=== PATIENT | male | born 1945 | race Caucasian/White ===

== ENCOUNTER 2018-12-27 05:48 | Observation (INO) | payer MEDICARE, MEDICAID ==
[2018-12-27] VITALS (15 sets, daily range): BP systolic 78–154; BP diastolic 42–83; PULSE 55–99; TEMP 97.6–98.6
[~2018-12-27] VITALS: Ht 175.3 cm; Wt 78.8 kg
[2018-12-27 06:06] LABS: BASO % 0.3 % (0.0-2.0); EOS # 0.2 (0.0-0.7); EOS % 2.9 % (0-4.0); GRAN # 3.5 (1.4-6.5); HEMATOCRIT 42.4 % (42.0-52.0); HEMOGLOBIN 14.4 g/dl (13.5-18.0); LYMPH # 1.6 (1.2-3.4); LYMPH % 27.4 % (20.0-51.0); MEAN CELL VOLUME 97 fl (80.0-100.0); MEAN CORPUSCULAR HEMOGLOBIN 33 pg (27.0-31.0); MEAN CORPUSCULAR HGB CONC 34 g/dl (33.0-37.0); MEAN PLATELET VOLUME 9.1 fl (7.4-10.4); MONO # 0.5 (0.1-0.6); MONO % 9.1 % (1.7-9.3); PLATELET COUNT 205 K/mm3 (130-400); RED BLOOD COUNT 4.37 M/mm3 (4.20-5.60); REDCELL DISTRIBUTION WIDTH-CV 12.7 % (11.5-14.5)
[2018-12-27 06:15] LABS: ALANINE AMINOTRANSFERASE 8 U/L (21-72); ALBUMIN 4.1 gm/dL (3.5-5.0); ALKALINE PHOSPHATASE 62 U/L (50-136); ANION GAP 10 mmol/L (7-16); AST,SGOT 24 U/L (15-37); BILIRUBIN,TOTAL 0.6 mg/dL (0.0-1.0); BLOOD UREA NITROGEN 16 mg/dL (9-20); CALCIUM 9.3 mg/dL (8.4-10.2); CARBON DIOXIDE 31 mmol/L (22-30); CHLORIDE 100 mmol/L (98-107); CREATININE, serum 0.76 (0.66-1.25); GLUCOSE 96 mg/dL (74-106); LIPASE 44 U/L (23-300); POTASSIUM 3.5 mmol/L (3.4-5.0); SODIUM 141 mmol/L (137-145); TOTAL PROTEIN 7.3 gm/dL (6.4-8.2)
[2018-12-27 06:21] LABS: PARTIAL THROMBOPLASTIN TIME 32.9 SECONDS (26.0-37.0)
[2018-12-27 06:22] LABS: D-DIMER < 200.00 ng/mLDDu (200-230)
[2018-12-27 06:26] LABS: TROPONIN-I < 0.012 ng/mL (0.000-0.035)
[2018-12-27] MEDS ORDERED: SINEMET CR 50 M1 TER PO (07:33)
[2018-12-27] MEDS ORDERED: ASPIRIN 81M81 MG/TA2 PO (07:46)
[2018-12-27] MEDS ORDERED: NORVASC 5MG5 MG/TAB PO (07:46)
[2018-12-27] MEDS ORDERED: CENTRUM SILVER1 CTB PO (07:46)
[2018-12-27] MEDS ORDERED: TOPROL XL 25MG25 MG PO (07:47)
[2018-12-27] MEDS ORDERED: ARICEPT10 MG PO (07:47)
[2018-12-27] MEDS ORDERED: HCTZ 25MG TAB25 MG PO (07:47)
[2018-12-27] MEDS ORDERED: IRON 27 MG PO (07:47)
[2018-12-27] MEDS ORDERED: MASON NATURAL2000 IU (07:48)
[2018-12-27] MEDS ORDERED: NATURAL BALANCE15 M1 OP (07:49)
[2018-12-27] MEDS ORDERED: MIRALAX PA17 GM/Dose PO (07:50)
--- NOTE | 2018-12-27 09:00 | NUR ---
arrived on unit per WC and assisted out of WC and into bed
--- NOTE | 2018-12-27 10:00 | NUR ---
resting in bed, Dr Hu and his nurse in to see patient, will plan cardiac cath this afternoon, full assessment completed, see interventions for further info, voided in urinal clear yellow urinal, had been incontinent of small amount urine and care provided
--- NOTE | 2018-12-27 10:52 | NUR ---
vascular lab in to complete echocardiogram
[2018-12-27] MEDS ORDERED: DULCOLAX S10 MG/SUPP RC (11:06)
[2018-12-27] MEDS ORDERED: GOOD NEIGH1200 MG/15 PO (11:09)
[2018-12-27] MEDS ORDERED: IMODIUM 2MG CAPS2 MG PO (11:09)
[2018-12-27] MEDS ORDERED: MYLANTA 150 ML150 M1 PO (11:10)
[2018-12-27] MEDS ORDERED: TYLENOL 325MG325 MG PO (11:11)
--- NOTE | 2018-12-27 11:50 | NUR ---
resting in bed, is very concerned about his parkinson's medication and this was given at this time, denies other needs
--- NOTE | 2018-12-27 12:50 | NUR ---
consent signed for heaert cath, voided using urinal
--- NOTE | 2018-12-27 13:38 | NUR ---
resting in bed and denies needs
--- NOTE | 2018-12-27 14:17 | NUR ---
continues to rest in bed and awaiting cardiac cath
--- NOTE | 2018-12-27 14:45 | NUR ---
to clinical laboratory service teacher per bed
--- NOTE | 2018-12-27 15:18 | NUR ---
SEE MERGE DOCUMENTATION FOR MEDICATION ADMINISTRATION TIMES AND INTRA/POST PROCEDURE SEDATION ASSESSMENTS.
--- NOTE | 2018-12-27 15:51 | NUR ---
remains in nursery laborer, bedside shift report given to FATOU Alamo
--- NOTE | 2018-12-27 16:30 | NUR ---
Patient is back from heart cath. He is drowy but wakes easily and is oriented. He stated he is very hungry. Discussed ordering foods he can eat easily without sitting up because he has to lay flat for 4 hours. Patient verbalized understanding. Vitals stable and documented. Site to right groin is soft, angio-seal dressing is C/D/I. No other changes at this time. Call light within reach. Patient denies pain. Bed alarm set for if patient forgets and tries to get up.
--- NOTE | 2018-12-27 16:32 | NUR ---
PT TRANSFER BACK TO INPATIENT ROOM AT THIS TIME. BEDSIDE REPORT WITH FATOU LOPEZ. MONITORING EQUIPMENT IN PLACE; VS'S STABLE. TELEMETRY CONNECTED. RIGHT FEMORAL SITE OBSERVED WITH INPATIENT RN. SITE SOFT TO PALPATION ; NO BLEEDING, BRUISING, OR SIGN OF HEMATOMA NOTED AT THIS TIME. DISTAL DP PULSE +1; NO CHANGE FROM PRE-PROCEDURE.
--- NOTE | 2018-12-27 18:00 | NUR ---
Patient has been doing well since getting back from his heart cath. Patient denies pain. Needs several reminders that his flat time is up at 2030. Patient ate supper without problems. Denies pain to heart cath site, site remains soft and without drainage. No other changes at this time. Call light within reach.
[2018-12-28 04:41] VITALS: BP 126/61; PULSE 65; TEMP 97.6
[2018-12-28 06:15] LABS: BASO % 0.3 % (0.0-2.0); EOS # 0.1 (0.0-0.7); EOS % 1.8 % (0-4.0); GRAN # 4.7 (1.4-6.5); GRAN % 70.1 % (42.2-75.2); LYMPH # 1.2 (1.2-3.4); LYMPH % 18.3 % (20.0-51.0); MEAN CELL VOLUME 98 fl (80.0-100.0); MEAN CORPUSCULAR HGB CONC 34 g/dl (33.0-37.0); MEAN PLATELET VOLUME 9.2 fl (7.4-10.4); MONO # 0.6 (0.1-0.6); MONO % 9.2 % (1.7-9.3); PLATELET COUNT 181 K/mm3 (130-400); RED BLOOD COUNT 3.73 M/mm3 (4.20-5.60); REDCELL DISTRIBUTION WIDTH-CV 12.7 % (11.5-14.5)
[2018-12-28 06:21] LABS: ANION GAP 8 mmol/L (7-16); BLOOD UREA NITROGEN 14 mg/dL (9-20); CALCIUM 8.5 mg/dL (8.4-10.2); CARBON DIOXIDE 30 mmol/L (22-30); CHLORIDE 100 mmol/L (98-107); CHOLESTEROL 142 mg/dL (120-200); CREATININE, serum 0.77 (0.66-1.25); GLUCOSE 102 mg/dL (74-106); HDL CHOLESTEROL 35 mg/dL; HEMATOCRIT 36.5 % (42.0-52.0); HEMOGLOBIN 12.4 g/dl (13.5-18.0); LDL CHOLESTEROL 94 mg/dL; MEAN CORPUSCULAR HEMOGLOBIN 33 pg (27.0-31.0); POTASSIUM 3.7 mmol/L (3.4-5.0); SODIUM 138 mmol/L (137-145); TRIGLYCERIDE 67 mg/dL
[2018-12-28 06:32] LABS: TROPONIN-I < 0.012 ng/mL (0.000-0.035)
[2018-12-28 07:03] VITALS: BP 114/61; PULSE 66; TEMP 98.2
--- NOTE | 2018-12-28 08:55 | NUR ---
Patient assessment complete. Lung sounds clear, heart RRR, pulses palpable. VSS. Patient on 2 1/2L NC. Titrated to 1L NC to see how patient tolerates. Per patient he is not on O2 at senior care. Patient has noticeable tremors. Rt groin heart cath site is CDI, no swelling, hematoma, bruising, soft to touch. INT RFA IV is patent. Patient states he does get SOB and has some chest tightness. Patient appears to have mild confusion. Could state bday, hard to recall where he currently is or name of senior care. patient needed guidance and also slow to respond. No other needs at this time. Call light within reach.
[2018-12-28] MEDS ORDERED: IMDUR 60MG60 MG/TAB PO (10:30)
[2018-12-28] MEDS ORDERED: LIPITOR 40MG TA40 MG PO (10:30)
[2018-12-28] MEDS ORDERED: NITROSTAT0.4 MG/TAB SL (10:32)
[2018-12-28 10:46] VITALS: BP 132/72; PULSE 78; TEMP 98
--- NOTE | 2018-12-28 13:10 | NUR ---
SEAMUS contacted the patient's daughter, Tierra, to discuss discharge plan. The patient resides at [facility] for long-term care. The patient's daughter reports that the plan is for the patient to return back to [facility] upon discharge. SEAMUS explained the patient choice form to the patient's daughter. The patient's daughter gave SEAMUS her verbal consent. SEAMUS contacted and faxed updates to Mirela at [facility]. The patient is to discharge today, 12/28, back to [facility] for long-term care. Transportation was set for 1400, via [facility]. SEAMUS informed the patient's nurse and the patient's daughter via phone. They were both in agreeance. No additional needs at this time.
[2018-12-28 14:11] VITALS: BP 132/72; PULSE 78; TEMP 98
--- NOTE | 2018-12-28 14:30 | NUR ---
patient discharged back to [facility]. FATOU Schultz here to nut picker patient. this nurse assisted in helping patient to wheelchair. Per FATOU Schultz this patient was more independent than he appears now, she feels he has declined "quite a bit" in the day that he has been here. It is this nurses first shift with patient. FATOU Schultz asked to give her "30 minutes to get back and get settled and call her for report".
[2018-12-28 15:44] VITALS: BP 77/38; PULSE 68; TEMP 97.9
--- NOTE | 2018-12-28 15:55 | NUR ---
report called to FATOU Caro at [facility]. All questions answered. No other questions.
== END 2018-12-28 14:30 ==
LOC: COL.ER 05:48 → MEDICAL 07:11
PROVIDERS: Emergency Medicine; Physician Assistant; ADMIT Hospitalist
DX: I25.10 Atherosclerotic heart disease of native coronary artery without angina pectoris (principal); I10 Essential (primary) hypertension; J96.01 Acute respiratory failure with hypoxia; F03.90 Unspecified dementia, unspecified severity, without behavioral disturbance, psychotic disturbance, mood disturbance, and anxiety; G20 Parkinson's disease; D64.9 Anemia, unspecified; Z90.49 Acquired absence of other specified parts of digestive tract; E53.8 Deficiency of other specified B group vitamins; Z79.82 Long term (current) use of aspirin; Z87.891 Personal history of nicotine dependence; Z82.49 Family history of ischemic heart disease and other diseases of the circulatory system; I34.0 Nonrheumatic mitral (valve) insufficiency
CPT/HCPCS: 99222-AI; G0378; J1644; J1650; J2250; J3010; J7030; Q9967

== ENCOUNTER → 2019-07-11 | Outpatient (CLI) | payer MEDICARE, MEDICAID ==
[~2019-07-11] MED LIST: ARICEPT10 MG PO; ASPIRIN 81M81 MG/TA2 PO; CENTRUM SILVER1 CTB PO; DULCOLAX S10 MG/SUPP RC; GOOD NEIGH1200 MG/15 PO; HCTZ 25MG TAB25 MG PO; IMDUR 60MG60 MG/TAB PO; IMODIUM 2MG CAPS2 MG PO; IRON 27 MG PO; LIPITOR 40MG TA40 MG PO; MASON NATURAL2000 IU; MIRALAX PA17 GM/Dose PO; MYLANTA 150 ML150 M1 PO; NATURAL BALANCE15 M1 OP; NITROSTAT0.4 MG/TAB SL; NORVASC 5MG5 MG/TAB PO; SINEMET CR 50 M1 TER PO; TOPROL XL 25MG25 MG PO; TYLENOL 325MG325 MG PO
[2019-07-11 19:53] LABS: CALCIUM 8.8 mg/dL (8.4-10.2); CREATININE, serum 0.84 (0.66-1.25); POTASSIUM 3.1 mmol/L (3.4-5.0)
== END ==
LOC: ZCOL.LAB 14:25
PROVIDERS: Nurse Practitioner Family
DX: E87.6 Hypokalemia (principal)

== ENCOUNTER → 2019-07-26 | Outpatient (CLI) | payer MEDICARE, MEDICAID ==
[2019-07-26 15:48] LABS: CALCIUM 8.7 mg/dL (8.4-10.2); CREATININE, serum 0.92 (0.66-1.25); POTASSIUM 3.5 mmol/L (3.4-5.0)
== END ==
LOC: ZCOL.LAB 15:10
PROVIDERS: Internal Medicine
DX: E78.6 Lipoprotein deficiency (principal)

== ENCOUNTER → 2019-10-09 | Outpatient (CLI) | payer MEDICARE, MEDICAID ==
[2019-10-09 20:09] LABS: CALCIUM 9.1 mg/dL (8.4-10.2); CREATININE, serum 0.84 (0.66-1.25); POTASSIUM 3.9 mmol/L (3.4-5.0)
== END ==
LOC: ZCOL.LAB 18:21
PROVIDERS: Internal Medicine
DX: E87.5 Hyperkalemia (principal)

== ENCOUNTER → 2019-10-09 | Outpatient (CLI) | payer MEDICARE, MEDICAID | LOC: ZCOL.LAB 17:45 | DX: E87.5 Hyperkalemia (principal) ==

== ENCOUNTER → 2020-02-03 | Outpatient (CLI) | payer MEDICARE, MEDICAID | LOC: ZCOL.LAB 16:56 | DX: R50.81 Fever presenting with conditions classified elsewhere (principal); Z20.828 Contact with and (suspected) exposure to other viral communicable diseases ==

== ENCOUNTER → 2020-03-05 | Outpatient (CLI) | payer MEDICARE, MEDICAID ==
[2020-03-05 17:01] LABS: BASO % 0.5 % (0.0-2.0); EOS # 0.2 (0.0-0.7); EOS % 3.7 % (0-4.0); GRAN # 3.9 (1.4-6.5); GRAN % 62.7 % (42.2-75.2); HEMATOCRIT 38.1 % (42.0-52.0); HEMOGLOBIN 13.1 g/dl (13.5-18.0); LYMPH # 1.5 (1.2-3.4); LYMPH % 23.6 % (20.0-51.0); MEAN CELL VOLUME 99 fl (80.0-100.0); MEAN CORPUSCULAR HEMOGLOBIN 34 pg (27.0-31.0); MEAN CORPUSCULAR HGB CONC 34 g/dl (33.0-37.0); MEAN PLATELET VOLUME 9.7 fl (7.4-10.4); MONO # 0.6 (0.1-0.6); MONO % 9.3 % (1.7-9.3); PLATELET COUNT 220 K/mm3 (130-400); RED BLOOD COUNT 3.85 M/mm3 (4.20-5.60); REDCELL DISTRIBUTION WIDTH-CV 12.3 % (11.5-14.5)
[2020-03-05 17:31] LABS: ERYTHROCYTE SEDIMENTATION RATE 1 mm/hr (0-30)
[2020-03-05 17:33] LABS: ALBUMIN 3.9 gm/dL (3.5-5.0); BILIRUBIN,TOTAL 0.5 mg/dL (0.0-1.0); CREATININE, serum 0.78 (0.66-1.25); POTASSIUM 4.3 mmol/L (3.4-5.0); TOTAL PROTEIN 6.6 gm/dL (6.4-8.2)
[2020-03-05 18:03] LABS: THYROID STIMULATING HORMONE 0.458 uIU/mL (0.465-4.680)
== END ==
LOC: ZCOL.LAB 16:42
PROVIDERS: Internal Medicine
DX: R63.4 Abnormal weight loss (principal)

== ENCOUNTER → 2020-12-03 | Outpatient (CLI) | payer MEDICARE, MEDICAID ==
[~2020-12-03] MED LIST changes: +ALDACTONE 25MG25 M1 PO; +ATARAX 25MG25 MG/TAB PO; +COLACE 100100 MG/CAP PO; +DULCOLAX TAB5 MG PO; +NORCO 325 MG-51 TAB PO; +PRILOSEC 20MG20 MG PO; +REMERON30 MG PO; +SEROQUEL 2525 MG/TAB PO; +STALEVO PO; +SYMMETREL100 M1 PO
[2020-12-03 12:38] LABS: ALBUMIN 4.1 gm/dL (3.5-5.0); BILIRUBIN,TOTAL 0.6 mg/dL (0.0-1.0); CALCIUM 9.2 mg/dL (8.4-10.2); CREATININE, serum 0.78 (0.66-1.25); POTASSIUM 4.3 mmol/L (3.4-5.0); TOTAL PROTEIN 6.9 gm/dL (6.4-8.2)
[2020-12-03 12:39] LABS: BASO % 0.3 % (0.0-2.0); EOS # 0.1 (0.0-0.7); EOS % 1.3 % (0-4.0); GRAN # 4.7 (1.4-6.5); GRAN % 73.2 % (42.2-75.2); HEMATOCRIT 39.7 % (42.0-52.0); HEMOGLOBIN 13.6 g/dl (13.5-18.0); LYMPH # 1.1 (1.2-3.4); LYMPH % 17.1 % (20.0-51.0); MEAN CELL VOLUME 101 fl (80.0-100.0); MEAN CORPUSCULAR HEMOGLOBIN 34 pg (27.0-31.0); MEAN CORPUSCULAR HGB CONC 34 g/dl (33.0-37.0); MEAN PLATELET VOLUME 9.7 fl (7.4-10.4); MONO # 0.5 (0.1-0.6); MONO % 7.8 % (1.7-9.3); PLATELET COUNT 256 K/mm3 (130-400); RED BLOOD COUNT 3.95 M/mm3 (4.20-5.60); REDCELL DISTRIBUTION WIDTH-CV 12.5 % (11.5-14.5)
[2020-12-03 13:08] LABS: ERYTHROCYTE SEDIMENTATION RATE 4 mm/hr (0-30)
== END ==
LOC: ZCOL.LAB 11:42
PROVIDERS: Internal Medicine
DX: I10 Essential (primary) hypertension (principal); D64.9 Anemia, unspecified; M62.82 Rhabdomyolysis

== ENCOUNTER → 2020-12-09 | Outpatient (CLI) | payer MEDICARE, MEDICAID | LOC: COL.RAD 08:36 | DX: J98.4 Other disorders of lung (principal); Z87.891 Personal history of nicotine dependence ==

== ENCOUNTER → 2021-01-29 | Outpatient (CLI) | payer MEDICARE, MEDICAID ==
[2021-01-29 11:31] LABS: ALBUMIN 3.7 gm/dL (3.5-5.0); BILIRUBIN,TOTAL 0.9 mg/dL (0.0-1.0); CALCIUM 9.2 mg/dL (8.4-10.2); CREATININE, serum 0.64 (0.66-1.25); POTASSIUM 3.8 mmol/L (3.4-5.0); TOTAL PROTEIN 6.5 gm/dL (6.4-8.2)
[2021-01-29 11:32] LABS: BASO % 0.4 % (0.0-2.0); EOS # 0.1 (0.0-0.7); EOS % 1.7 % (0-4.0); GRAN # 5.2 (1.4-6.5); GRAN % 74.6 % (42.2-75.2); HEMATOCRIT 37.1 % (42.0-52.0); HEMOGLOBIN 13.1 g/dl (13.5-18.0); LYMPH # 0.9 (1.2-3.4); LYMPH % 12.8 % (20.0-51.0); MEAN CELL VOLUME 98 fl (80.0-100.0); MEAN CORPUSCULAR HEMOGLOBIN 35 pg (27.0-31.0); MEAN CORPUSCULAR HGB CONC 35 g/dl (33.0-37.0); MEAN PLATELET VOLUME 10.2 fl (7.4-10.4); MONO # 0.7 (0.1-0.6); MONO % 10.1 % (1.7-9.3); PLATELET COUNT 191 K/mm3 (130-400); RED BLOOD COUNT 3.79 M/mm3 (4.20-5.60); REDCELL DISTRIBUTION WIDTH-CV 12.4 % (11.5-14.5)
[2021-01-29 11:44] LABS: THYROID STIMULATING HORMONE 0.943 uIU/mL (0.465-4.680)
== END ==
LOC: ZCOL.LAB 11:25
PROVIDERS: Internal Medicine
DX: R63.4 Abnormal weight loss (principal)

== ENCOUNTER → 2021-02-09 | Outpatient (CLI) | payer MEDICARE, MEDICAID | LOC: COL.RAD 09:30 | DX: M25.511 Pain in right shoulder (principal); Z79.899 Other long term (current) drug therapy ==

== ENCOUNTER → 2021-02-27 | Outpatient (CLI) | payer MEDICARE, MEDICAID ==
[2021-02-27 10:39] LABS: BASO % 0.6 % (0.0-2.0); EOS # 0.1 (0.0-0.7); EOS % 1.3 % (0-4.0); GRAN # 5.1 (1.4-6.5); GRAN % 71.8 % (42.2-75.2); HEMATOCRIT 39.1 % (42.0-52.0); HEMOGLOBIN 13.1 g/dl (13.5-18.0); LYMPH # 1.3 (1.2-3.4); LYMPH % 18.8 % (20.0-51.0); MEAN CELL VOLUME 103 fl (80.0-100.0); MEAN CORPUSCULAR HEMOGLOBIN 35 pg (27.0-31.0); MEAN CORPUSCULAR HGB CONC 34 g/dl (33.0-37.0); MEAN PLATELET VOLUME 9.6 fl (7.4-10.4); MONO # 0.5 (0.1-0.6); MONO % 7.2 % (1.7-9.3); PLATELET COUNT 264 K/mm3 (130-400); RED BLOOD COUNT 3.79 M/mm3 (4.20-5.60); REDCELL DISTRIBUTION WIDTH-CV 13.2 % (11.5-14.5)
[2021-02-27 11:10] LABS: ALBUMIN 3.6 gm/dL (3.5-5.0); BILIRUBIN,TOTAL 0.6 mg/dL (0.0-1.0); CALCIUM 8.9 mg/dL (8.4-10.2); CREATININE, serum 0.65 (0.66-1.25); POTASSIUM 4.2 mmol/L (3.4-5.0); TOTAL PROTEIN 6.4 gm/dL (6.4-8.2)
[2021-02-27 11:40] LABS: THYROID STIMULATING HORMONE 1.07 uIU/mL (0.465-4.680)
== END ==
LOC: COL.LAB 10:17
PROVIDERS: Internal Medicine
DX: M62.82 Rhabdomyolysis (principal)

== ENCOUNTER 2021-04-08 15:17 | Observation (INO) | payer MEDICARE, MEDICAID ==
[~2021-04-08] VITALS: Ht 175.3 cm; Wt 57.7 kg
[~2021-04-08 15:17] MED LIST changes: -ALDACTONE 25MG25 M1 PO; -ATARAX 25MG25 MG/TAB PO; -COLACE 100100 MG/CAP PO; -DULCOLAX TAB5 MG PO; -NORCO 325 MG-51 TAB PO; -PRILOSEC 20MG20 MG PO; -REMERON30 MG PO; -SEROQUEL 2525 MG/TAB PO; -STALEVO PO; -SYMMETREL100 M1 PO
[2021-04-08 15:56] LABS: BASO % 0.1 % (0.0-2.0); EOS % 0.5 % (0-4.0); GRAN # 6.5 (1.4-6.5); GRAN % 82.9 % (42.2-75.2); HEMATOCRIT 37.6 % (42.0-52.0); HEMOGLOBIN 13.2 g/dl (13.5-18.0); LYMPH # 0.7 (1.2-3.4); LYMPH % 8.5 % (20.0-51.0); MEAN CELL VOLUME 101 fl (80.0-100.0); MEAN CORPUSCULAR HEMOGLOBIN 36 pg (27.0-31.0); MEAN CORPUSCULAR HGB CONC 35 g/dl (33.0-37.0); MEAN PLATELET VOLUME 9.3 fl (7.4-10.4); MONO # 0.6 (0.1-0.6); MONO % 7.5 % (1.7-9.3); PLATELET COUNT 211 K/mm3 (130-400); RED BLOOD COUNT 3.72 M/mm3 (4.20-5.60); REDCELL DISTRIBUTION WIDTH-CV 12.1 % (11.5-14.5)
[2021-04-08 16:04] LABS: INR 1.2 (0.8-3.0); PROTHROMBIN TIME 13.7 SECONDS (9.7-12.8)
[2021-04-08 16:15] LABS: ALANINE AMINOTRANSFERASE 12 U/L (4-49); ALBUMIN 4.5 gm/dL (3.5-5.0); ALKALINE PHOSPHATASE 85 U/L (50-136); ANION GAP 9 mmol/L (7-16); AST,SGOT 27 U/L (15-37); BILIRUBIN,TOTAL 0.6 mg/dL (0.0-1.0); BLOOD UREA NITROGEN 16 mg/dL (9-20); CALCIUM 8.9 mg/dL (8.4-10.2); CARBON DIOXIDE 22 mmol/L (22-30); CHLORIDE 106 mmol/L (98-107); CREATINE KINASE 52 U/L (55-170); CREATININE, serum 0.65 (0.66-1.25); GLUCOSE 119 mg/dL (74-106); LIPASE 47 U/L (23-300); POTASSIUM 3.9 mmol/L (3.4-5.0); SODIUM 137 mmol/L (137-145); TOTAL PROTEIN 7.4 gm/dL (6.4-8.2)
[2021-04-08 16:27] LABS: TROPONIN-I < 0.012 ng/mL (0.000-0.035)
[2021-04-08 22:05] VITALS: BP 142/78; PULSE 66; TEMP 97.6
--- NOTE | 2021-04-08 22:30 | NUR ---
Admitted to medical floor from ER with Chest pain--states still has chest pain- states its a 01/30, ache in center of chest ,, will try a [place] at this time, pt states he is familiar with [place] and they work well for him-- pt is alert/confused as to time/month,, bed alarm on, talks very quietly- pleasant, unable to answer most of the medical questions-- states he has lost weight 20-30 lbs? not sure of time frame. Weighs 125lbs on admission. call light in reach-- will call down to ER ,to see if they have the med sheet from [facility]
[2021-04-09] VITALS (12 sets, daily range): BP systolic 94–151; BP diastolic 53–88; PULSE 20–107; TEMP 97.7–98.5
[2021-04-09 06:42] LABS: BASO % 0.5 % (0.0-2.0); EOS # 0.1 (0.0-0.7); EOS % 1.4 % (0-4.0); GRAN # 4.2 (1.4-6.5); HEMATOCRIT 39.2 % (42.0-52.0); HEMOGLOBIN 13.6 g/dl (13.5-18.0); MEAN CELL VOLUME 101 fl (80.0-100.0); MEAN CORPUSCULAR HEMOGLOBIN 35 pg (27.0-31.0); MEAN CORPUSCULAR HGB CONC 35 g/dl (33.0-37.0); MEAN PLATELET VOLUME 9.2 fl (7.4-10.4); MONO # 0.5 (0.1-0.6); MONO % 8.8 % (1.7-9.3); PLATELET COUNT 216 K/mm3 (130-400); REDCELL DISTRIBUTION WIDTH-CV 12.2 % (11.5-14.5)
[2021-04-09 06:58] LABS: ANION GAP 4 mmol/L (7-16); BLOOD UREA NITROGEN 14 mg/dL (9-20); CALCIUM 8.8 mg/dL (8.4-10.2); CARBON DIOXIDE 27 mmol/L (22-30); CHLORIDE 103 mmol/L (98-107); CREATININE, serum 0.71 (0.66-1.25); GLUCOSE 97 mg/dL (74-106); MAGNESIUM 1.8 mg/dL (1.6-2.3); SODIUM 134 mmol/L (137-145)
[2021-04-09 07:03] LABS: TROPONIN-I < 0.012 ng/mL (0.000-0.035)
--- NOTE | 2021-04-09 07:31 | NUR ---
Quiet night- VSS, troponins came back negative- NPo for Echo/Lexiscan
[2021-04-09] MEDS ORDERED: SYMMETREL100 M1 PO (07:42)
[2021-04-09] MEDS ORDERED: REMERON30 MG PO (07:49)
[2021-04-09] MEDS ORDERED: PRILOSEC 20MG20 MG PO (07:51)
[2021-04-09] MEDS ORDERED: SEROQUEL 2525 MG/TAB PO (07:53)
[2021-04-09] MEDS ORDERED: ALDACTONE 25MG25 M1 PO (07:54)
[2021-04-09] MEDS ORDERED: COLACE 100100 MG/CAP PO (07:58)
[2021-04-09] MEDS ORDERED: ATARAX 25MG25 MG/TAB PO (08:05)
[2021-04-09] MEDS ORDERED: NORCO 325 MG-51 TAB PO (08:08)
[2021-04-09] MEDS ORDERED: TYLENOL 325MG325 MG PO (08:11)
[2021-04-09] MEDS ORDERED: DULCOLAX TAB5 MG PO (08:15)
[2021-04-09] MEDS ORDERED: STALEVO PO (08:22)
--- NOTE | 2021-04-09 11:00 | NUR ---
AT 0945 PT WAS FOUND INCONTINET OF URINE AND STOOL. PT WAS CLEANED UP AND DEPENDS CHANGED. NOTIFIED HIS NURSE OF ABOVE. MATERIALS WERE PLACED WITH Enecsys DUE TO RADIOACTIVE MATERIAL USED DURING THE PROCEDURE.
--- NOTE | 2021-04-09 11:25 | NUR ---
Patient had EHCO this morning and went down for a Lexiscan. When patient came back up he needed to have a bowel movement. Patient appears very weak, so this RN did not feel comfortable putting the patient on the BSC. This RN and [facility] - Molly, were going to place patient on the bedpan, but as soon as the patient rolled he had already been incontinent of bowel. Patient had a large, soft BM, dark brown color. Patient was also incontinent of bladder. Total kyle care was provided... Patient is very soft spoken and has not had any complaints this morning. Patient's AM medications were held d/t patient being NPO for Lexiscan. Patient will remain NPO until results are received.
--- NOTE | 2021-04-09 14:14 | NUR ---
Per the patient's H&P, the patient resides at [facility]. SEAMUS contacted Sveta at [facility] and confirms that the patient resides there for long-term care in [facility]. The patient's PCP is Dr. Tesfaye Cuello and his DPOA-HC is in his chart. It designates his daughter, Tierra Bailey (ph#[phone]). SEAMUS staffed with the PA. The patient will be ready to d/c tomorrow. SEAMUS notified and faxed updates to Sveta at [facility]. SEAMUS attempted to contact and review the d/c plan with the patient's daughter, Tierra. SW left her a voicemail. *Discharge plan: [facility]*
--- NOTE | 2021-04-09 18:19 | NUR ---
Total kyle care provided twice today. Patient is incontinent of bowel and bladder. Patient was provided with clean sheets.
--- NOTE | 2021-04-09 22:13 | NUR ---
PT RESTING IN BED. EVENING MEDICATIONS GIVEN. EXTERNAL CATHETER PLACED AT THIS TIME DUE TO FREQUENT URINATION AND INCONTINENCE. DENIES ANY NEEDS, WILL CONTINUE TO MONITOR.
[2021-04-10 04:27] VITALS: BP 121/69; PULSE 58; TEMP 97.2
--- NOTE | 2021-04-10 06:17 | NUR ---
PT RESTING IN BED, HAD A RESTFUL NIGHT. WILL CONTINUE TO MONITOR.
--- NOTE | 2021-04-10 06:23 | NUR ---
Patient was hostile and would not stay still for EKG and ripping off wires for the EKG.
[2021-04-10 07:59] LABS: BASO % 0.7 % (0.0-2.0); EOS # 0.2 (0.0-0.7); GRAN # 3.6 (1.4-6.5); HEMATOCRIT 39.3 % (42.0-52.0); HEMOGLOBIN 13.6 g/dl (13.5-18.0); LYMPH # 1.3 (1.2-3.4); LYMPH % 22.6 % (20.0-51.0); MEAN CELL VOLUME 105 fl (80.0-100.0); MEAN CORPUSCULAR HEMOGLOBIN 36 pg (27.0-31.0); MEAN CORPUSCULAR HGB CONC 35 g/dl (33.0-37.0); MEAN PLATELET VOLUME 9.9 fl (7.4-10.4); MONO # 0.5 (0.1-0.6); MONO % 9.5 % (1.7-9.3); PLATELET COUNT 207 K/mm3 (130-400); RED BLOOD COUNT 3.76 M/mm3 (4.20-5.60); REDCELL DISTRIBUTION WIDTH-CV 12.4 % (11.5-14.5)
[2021-04-10 08:00] VITALS: BP 121/69; PULSE 67; TEMP 97.9
[2021-04-10 08:14] LABS: CALCIUM 9.3 mg/dL (8.4-10.2); CREATININE, serum 0.75 (0.66-1.25)
[2021-04-10] MEDS ORDERED: NORVASC 5MG5 MG/TAB PO (08:37)
--- NOTE | 2021-04-10 10:47 | NUR ---
Patient was out of bed in the bathroom with Chen RICHTER. Patient is doing much better as compared to yesterday. Patient is much more alert. Patient took all of his scheduled medications without difficulty. Hygiene care was provided by PCT.
[2021-04-10 11:55] VITALS: BP 118/65; PULSE 63; TEMP 97.7
--- NOTE | 2021-04-10 12:52 | NUR ---
[facility]. No concerns at time of discharge.
== END 2021-04-10 12:50 ==
LOC: COL.ER 15:17 → MEDICAL 18:19
PROVIDERS: Emergency Medicine; Physician Assistant; ADMIT Internal Medicine
DX: R07.89 Other chest pain (principal); I25.10 Atherosclerotic heart disease of native coronary artery without angina pectoris; G20 Parkinson's disease; I10 Essential (primary) hypertension; E78.5 Hyperlipidemia, unspecified; E53.8 Deficiency of other specified B group vitamins; E55.9 Vitamin D deficiency, unspecified; F03.90 Unspecified dementia, unspecified severity, without behavioral disturbance, psychotic disturbance, mood disturbance, and anxiety; Z79.82 Long term (current) use of aspirin; Z79.899 Other long term (current) drug therapy; Z87.891 Personal history of nicotine dependence
CPT/HCPCS: 99232-AI; A9500; G0378; J1650; J2270; J2405; J2785; J3010; J7030

== ENCOUNTER → 2021-06-26 | Outpatient (CLI) | payer MEDICARE, MEDICAID ==
[~2021-06-26] MED LIST changes: +ALDACTONE 25MG25 M1 PO; +ATARAX 25MG25 MG/TAB PO; +COLACE 100100 MG/CAP PO; +DULCOLAX TAB5 MG PO; +NORCO 325 MG-51 TAB PO; +PRILOSEC 20MG20 MG PO; +REMERON30 MG PO; +SEROQUEL 2525 MG/TAB PO; +STALEVO PO; +SYMMETREL100 M1 PO
[2021-06-26 20:38] LABS: CALCIUM 8.9 mg/dL (8.4-10.2); CREATININE, serum 0.81 mg/dL (0.72-1.25); POTASSIUM 3.7 mmol/L (3.5-4.5)
== END ==
LOC: ZCOL.LAB 19:51
PROVIDERS: Internal Medicine
DX: R60.0 Localized edema (principal)

== ENCOUNTER → 2021-10-20 | Outpatient (CLI) | payer MEDICARE, MEDICAID ==
[2021-10-20 19:38] LABS: COLLECTION METHOD CLEAN CATCH
[2021-10-20 19:50] LABS: MUCOUS Present (NOT PRESENT); PH 5 (5-8); SQUAMOUS EPITHELIAL None Seen /hpf (0-10); URINE APPEARANCE Clear (CLEAR/HAZY); URINE BACTERIA None Seen /hpf (NONE SEEN); URINE BILIRUBIN Negative (NEGATIVE); URINE BLOOD Negative (NEGATIVE); URINE COLOR Amber (YELLOW); URINE GLUCOSE Negative (NEGATIVE); URINE KETONE Trace (NEGATIVE); URINE LEUKOCYTE ESTERASE Negative (NEGATIVE); URINE NITRATE Negative (NEGATIVE); URINE PROTEIN(semi-quant) 1+ (NEGATIVE); URINE UROBILINOGEN Negative (NEGATIVE)
== END ==
LOC: ZCOL.LAB 18:38
PROVIDERS: Internal Medicine
DX: R30.0 Dysuria (principal)

== ENCOUNTER → 2021-10-27 | Outpatient (CLI) | payer MEDICARE, MEDICAID ==
[2021-10-27 19:28] LABS: CREATININE, serum 0.91 mg/dL (0.72-1.25); POTASSIUM 4.3 mmol/L (3.5-4.5)
== END ==
LOC: ZCOL.LAB 17:12
PROVIDERS: Internal Medicine
DX: A60.00 Herpesviral infection of urogenital system, unspecified (principal)

== ENCOUNTER 2022-02-14 17:44 | Inpatient (IN) | payer MEDICARE, MEDICAID ==
[~2022-02-14] VITALS: Ht 177.8 cm; Wt 63.6 kg
[2022-02-14 17:58] LABS: ARTERIAL BLD GAS O2 SATURATION 99.3 % (92-100); ARTERIAL BLD GAS TCO2 CT 25.5; ARTERIAL BLOOD GAS BASE EXCESS -0.4 (-2-2); ARTERIAL BLOOD GAS HCO3 24.3 meq/L (22-26); ARTERIAL BLOOD GAS PCO2 39.8 mmHg (35-45); ARTERIAL BLOOD GAS PO2 256.6 mmHg (80-100)
[2022-02-14 18:01] LABS: BASO # 0.1 K/mm3 (0.0-0.2); BASO % 0.8 % (0.0-2.0); EOS # 0.1 K/mm3 (0.0-0.7); EOS % 1.5 % (0.0-4.0); GRAN # 3.6 K/mm3 (1.4-6.5); GRAN % 60.1 % (42.2-75.2); HEMATOCRIT 41.1 % (42.0-52.0); LYMPH # 1.7 K/mm3 (1.2-3.4); LYMPH % 28.7 % (20.0-51.0); MEAN CELL VOLUME 100 fl (80.0-100.0); MEAN CORPUSCULAR HEMOGLOBIN 34 pg (27-31); MEAN CORPUSCULAR HGB CONC 34 g/dl (33.0-37.0); MEAN PLATELET VOLUME 9.6 fl (7.4-10.4); MONO # 0.5 K/mm3 (0.1-0.6); MONO % 8.6 % (1.7-9.3); PLATELET COUNT 214 K/mm3 (130-400); REDCELL DISTRIBUTION WIDTH-CV 12.1 % (11.5-14.5)
[2022-02-14 18:29] LABS: ALBUMIN 4.2 gm/dL (3.4-4.8); ALKALINE PHOSPHATASE 83 U/L (40-150); ANION GAP 14 mmol/L (7-16); AST,SGOT 13 U/L (5-34); BILIRUBIN,TOTAL 0.6 mg/dL (0.2-1.2); BLOOD UREA NITROGEN 13 mg/dL (8-26); C-REACTIVE PROTEIN 0.15 mg/dL (0.00-0.50); CARBON DIOXIDE 22 mmol/L (23-31); CHLORIDE 103 mmol/L (98-107); CREATININE, serum 0.81 mg/dL (0.72-1.25); GLUCOSE 108 mg/dL (70-99); POTASSIUM 4.4 mmol/L (3.5-4.5); SODIUM 139 mmol/L (136-145); TOTAL PROTEIN 6.9 gm/dL (6.2-8.1)
[2022-02-14 18:35] LABS: ALANINE AMINOTRANSFERASE < 6 U/L (0-55)
[2022-02-14 18:38] LABS: TROPONIN-I < 0.010 ng/mL (0.00-0.033)
--- NOTE | 2022-02-14 21:23 | NUR ---
1920 PRESENTED TO ER TO CHECK ON PT AFTER RECEIVING CALL FROM RN. ASSISTED RN WITH TAKING PT TO CT. PATIENT TOLERATED WELL. NO COMPLICATIONS. AFTER CT PT TAKEN BACK TO TO ER. ASSESSED PT'S O2 SATS AND REVIEWED PTS MOST RECENT ABG READINGS. BIPAP TAKEN OFF OF PATIENT AT THIS TIME TO TRIAL HIM ON NC. PT SET UP ON 3L NASAL CANNULA. AFTER PULSE OX CHANGED AND SATURATIONS WERE VERIFIED HE APPEARS TO BE TOLERATING 3L NC AT THIS TIME.
--- NOTE | 2022-02-14 23:30 | NUR ---
THE PATIENT ARRIVED FROM THE ED. ORDERS REVIEWED, AND PATIENT ASSESSMENT COMPLETED. PT STATES THAT HE IS SLEEPY AND JUST WANTS TO GO TO SLEEP. PT VSS. NO OTHER CONCERNS.
[2022-02-15] VITALS (8 sets, daily range): BP systolic 117–151; BP diastolic 62–87; PULSE 65–78; TEMP 97.7–98.9
[2022-02-15 06:16] LABS: BASO % 0.3 % (0.0-2.0); EOS % 0.3 % (0.0-4.0); GRAN # 10.7 K/mm3 (1.4-6.5); GRAN % 86.9 % (42.2-75.2); HEMOGLOBIN 12.3 g/dl (13.5-18.0); LYMPH # 0.8 K/mm3 (1.2-3.4); LYMPH % 6.7 % (20.0-51.0); MEAN CELL VOLUME 98 fl (80.0-100.0); MEAN CORPUSCULAR HEMOGLOBIN 34 pg (27-31); MEAN CORPUSCULAR HGB CONC 34 g/dl (33.0-37.0); MEAN PLATELET VOLUME 9.5 fl (7.4-10.4); MONO # 0.7 K/mm3 (0.1-0.6); MONO % 5.4 % (1.7-9.3); PLATELET COUNT 178 K/mm3 (130-400); RED BLOOD COUNT 3.65 M/mm3 (4.20-5.60); REDCELL DISTRIBUTION WIDTH-CV 12.2 % (11.5-14.5)
[2022-02-15 06:26] LABS: HEMATOCRIT 35.8 % (42.0-52.0)
[2022-02-15 06:46] LABS: CALCIUM 8.7 mg/dL (8.4-10.2); CREATININE, serum 0.78 mg/dL (0.72-1.25); MAGNESIUM 1.9 mg/dL (1.6-2.6); POTASSIUM 4.6 mmol/L (3.5-4.5)
--- NOTE | 2022-02-15 07:30 | NUR ---
PT HAD UNEVENTFUL NIGHT. REMAINED ON ROOM AIR. DENIES PAIN. REPORT GIVEN TO FATOU BENSON. NO OTHER CONCERNS.
[2022-02-15 13:08] LABS: CALCIUM 8.6 mg/dL (8.4-10.2); CREATININE, serum 0.77 mg/dL (0.72-1.25); POTASSIUM 4.3 mmol/L (3.5-4.5)
[2022-02-15 13:30] LABS: TSH w REFLEX 1.66 uIU/mL (0.350-4.940)
--- NOTE | 2022-02-15 14:29 | NUR ---
Surgical Nurse Practitioner met with patient's daughter, Tierra (ph#[phone]) at bedside to discuss discharge planning. Patient lives at [facility] in the [facility]. Patient sees Dr. Cuello for primary care and does not use any DME. Patient receives assistance with ADLS from [facility] staff. Patient's daughter, Tierra is DPOA-HC and copy is located in EMR. Plan is for patient to return to [facility]. Tierra expressed concerns with patient's weight loss. SEAMUS contacted Sveta and faxed clinical updates. Discharge Plan: [facility]
--- NOTE | 2022-02-15 21:00 | NUR ---
THE PATIENT PULLED OUT HIS LEFT HAND IV STATED THAT HE FELT IT WAS A SCAB AND NEEDED TO PULL IT. THE PATIENT REMAINS WITH ONE IV IN THE RIGHT FOREARM.
[2022-02-16 04:21] VITALS: BP 153/64; PULSE 88; TEMP 98.6
[2022-02-16 06:40] LABS: BASO # 0.1 K/mm3 (0.0-0.2); BASO % 0.9 % (0.0-2.0); EOS # 0.1 K/mm3 (0.0-0.7); EOS % 1.4 % (0.0-4.0); GRAN # 3.6 K/mm3 (1.4-6.5); HEMOGLOBIN 13.2 g/dl (13.5-18.0); LYMPH # 1.3 K/mm3 (1.2-3.4); LYMPH % 22.7 % (20.0-51.0); MEAN CELL VOLUME 101 fl (80.0-100.0); MEAN CORPUSCULAR HEMOGLOBIN 35 pg (27-31); MEAN CORPUSCULAR HGB CONC 35 g/dl (33.0-37.0); MONO # 0.6 K/mm3 (0.1-0.6); MONO % 9.8 % (1.7-9.3); PLATELET COUNT 179 K/mm3 (130-400); RED BLOOD COUNT 3.76 M/mm3 (4.20-5.60); REDCELL DISTRIBUTION WIDTH-CV 12.3 % (11.5-14.5)
[2022-02-16 07:00] LABS: CALCIUM 8.7 mg/dL (8.4-10.2); CREATININE, serum 0.8 mg/dL (0.72-1.25); POTASSIUM 3.9 mmol/L (3.5-4.5)
[2022-02-16 07:52] VITALS: BP 138/70; PULSE 64; TEMP 98.4
--- NOTE | 2022-02-16 08:53 | NUR ---
PATIENT SLEEPING IN BED. RESPONCE LIMITED TO VOCAL AND TACTILE INTERACTION. PATIENT CONFUSED TO LOCATION, TIME AND SITUATION. VERY DIFFICULT TO WAKE. VERY LETHARGIC. NOT ABLE TO FOLLOW DIRECTIONS. PATIENT HAS ARTIFICIAL LEFT EYE, LID DOES NOT CLOSE OVER COMPLETELY. SPEECH CLEAR WHEN PATIENT DOES SPEAK. PLAN FOR EEG TODAY. WILL INQUIRE ABOUT PICC LINE AND PALIATIVE CONSULT WITH PROVIDER TODAY. NO NOTICABLE COMPLAINTS OF PAIN, NO WITHDRAWALS OR GUARDING OR WINCING. PATIENT IN LOW LOCKED BED WITH ALARMS ON.
--- NOTE | 2022-02-16 09:11 | NUR ---
Spoke with Dr. Guerrier about EEG. He stated that getting the EEG tomorrow morning would be fine. RT plans to bring EEG machine up in AM.
--- NOTE | 2022-02-16 10:04 | NUR ---
Met with patient's daughter and primary nurse in my office. Expressed concern of patients lethargy and poor nutritional status. Explained to daughter that we may be seeing a progression of the patient's dementia and that we may see more low points in patient's mental status. She understands and states that something like a feeding tube is not something the patient would want so she is going to see what the EEG says and decide how aggressive to be with care after that.
[2022-02-16 11:42] VITALS: BP 121/65; PULSE 83; TEMP 97.5
--- NOTE | 2022-02-16 11:54 | NUR ---
DISCUSSED WITH PATIENT DAUGHTER USP PLAN OF CARE, PATIENT LOC WAXES AND WANES. PATIENT HAS MOMENTS OF CLARITY, ABLE TO FEED SELF AND TAKE MEDS, FOLLOWED BY MOMENTS OF ALMOST COMPLETE ABTUNDEDNESS. PATIENT HAS EEG PLANNED TOMORROW MORNING. PALLIATIVE CONSULT ORDERED. POSSIBLE HOSPICE STARTED ON DISCHARGE BACK TO [facility]. PATIENT DID TAKE ALL MEDS WITH BOTH APPLE SAUCE AND SIPS OF ORANGE JUICE. PATIENT SAT UP IN BED AND FED SELF. NEEDS SOME ENCOURAGEMENT AND FOOD CUT. LIGHTS ON, 90 DEGREE AND TRAY SET UP. ABLE TO FOLLOW BASIC COMMANDS. PATIENT DID HAVE MOMENTS OF LARGE BODY UNCONTROLLED RYTHMIC MOVEMENTS. REPORTED TO HOSPITALIST, WILL REPORT TO NUEROLOGIST. PATIENT MAINTAINED MENTAL STATUS THROUGHOUT EPISODE. NO COMPLAINTS OF PAIN.
--- NOTE | 2022-02-16 13:27 | NUR ---
Air And Missile Defense Crewmember spoke with Marie, Palliative RN who was consulted for patient. Marie advised that family would like to see how tomorrow morning's procedure goes before making any decisions, but are considering returning to [facility] on hospice. SEAMUS contacted Sveta at [facility] and provided the above update as well as faxed clinical updates. Discharge Plan: [facility]
--- NOTE | 2022-02-16 14:39 | NUR ---
Karen: No taoism preference Situation: bridge repairer stopped by on rounds Background: PT was eating lunch no other needs, family in the room Assessemnt: PT was content and appreciated the visit Recommendation: Marine Surveyor will follow up as needed
[2022-02-16] MEDS ORDERED: PLAVIX 75MG TAB75 MG PO (14:55)
[2022-02-16] MEDS ORDERED: NITROSTAT0.4 MG/TAB SL (15:03)
[2022-02-16] MEDS ORDERED: IMDUR 60MG60 MG/TAB PO (15:03)
[2022-02-16] MEDS ORDERED: NORVASC 5MG5 MG/TAB PO (15:04)
--- NOTE | 2022-02-16 15:15 | NUR ---
PATIENT HAD LARGE BM, BROWN, SOFT, LOOSE. NO COMPLAINTS OF PAIN. WENT FOR SWALLOW STUDY WITH SPEECH THERAPY. REPORT GIVEN TO FATOU LOGAN. INFORMATION REGAURDING PREFERED HOSPICE GROUP [facility] IF THAT ROUTE IS CONFIRMED GIVEN TO SEAMUS COULTER.
[2022-02-16 15:20] VITALS: BP 144/85; PULSE 98; TEMP 98.2
[2022-02-16 20:27] VITALS: BP 121/71; PULSE 68; TEMP 98.5
--- NOTE | 2022-02-16 21:50 | NUR ---
PY LAYING IN BED RESTING QUIETLY. PT DENIES ANY PAIN AT THIS TIME.
[2022-02-17 00:39] VITALS: BP 140/66; PULSE 55; TEMP 97.7
--- NOTE | 2022-02-17 03:37 | NUR ---
RN CALLED TO PATIENT'S ROOM. PT WAS FOUND OUT OF BED, NAKED, AND CONFUSED. PT PULLED OFF TELE LEADS AND PULLED OUT HIS IV. PT REORIENTED AND REGOWNED. TELE LEADS REPLACED. A NEW 20 GAUGE IV PLACED IN RIGHT FOREARM. BED ALARM SET AND LIGHTS TURNED OFF. DOOR OPEN. WILL CONTINUE TO MONITOR.
[2022-02-17 04:03] VITALS: BP 144/68; PULSE 64; TEMP 97.6
[2022-02-17 06:20] LABS: BASO % 0.5 % (0.0-2.0); EOS # 0.1 K/mm3 (0.0-0.7); EOS % 1.7 % (0.0-4.0); GRAN # 3.9 K/mm3 (1.4-6.5); HEMOGLOBIN 12.8 g/dl (13.5-18.0); LYMPH # 1.2 K/mm3 (1.2-3.4); LYMPH % 20.2 % (20.0-51.0); MEAN CELL VOLUME 97 fl (80.0-100.0); MEAN CORPUSCULAR HEMOGLOBIN 35 pg (27-31); MEAN CORPUSCULAR HGB CONC 36 g/dl (33.0-37.0); MONO # 0.7 K/mm3 (0.1-0.6); MONO % 12.1 % (1.7-9.3); PLATELET COUNT 194 K/mm3 (130-400); RED BLOOD COUNT 3.67 M/mm3 (4.20-5.60)
[2022-02-17 06:22] LABS: HEMATOCRIT 35.7 % (42.0-52.0)
[2022-02-17 06:33] LABS: CALCIUM 8.8 mg/dL (8.4-10.2); CREATININE, serum 0.81 mg/dL (0.72-1.25); POTASSIUM 3.8 mmol/L (3.5-4.5)
--- NOTE | 2022-02-17 07:08 | NUR ---
Patient moving during EEG procedure. Was difficult to get a good reading.
[2022-02-17 07:43] VITALS: BP 105/59; PULSE 70; TEMP 97.6
--- NOTE | 2022-02-17 08:50 | NUR ---
PT LAYING SUPINE IN BED ON ROOM AIR. PT KNOWS NAME AND BIRTHDAY BUT STATES THAT HE IS AT [facility] AND IT IS 2004. PT STATES NO PAIN/DISCOMFORT AT THIS TIME. "I AM DOING GOOD, JUST WATCHING TV." PT STATES NO NEEDS. PT WAS GIVEN MORE WATER. CALL LIGHT IS WITHIN REACH. PT ORIENTED TO USE OF IT.
--- NOTE | 2022-02-17 09:57 | NUR ---
ATTEMPTED TO CONTACT PTS DAUGHTER, EUGENIO, NO ANSWER.
[2022-02-17 11:21] VITALS: BP 100/56; PULSE 77; TEMP 98
--- NOTE | 2022-02-17 12:42 | NUR ---
Hand Nailer attended clinical rounds with the team and patient is ready for discharge back to [facility] today. SEAMUS contacted patient's daughter, Tierra who advised they want patient to return to [facility] with hospice services from [facility]. SEAMUS reviewed IM form with patient's daughter who verbalized understanding and gave verbal consent as signature. SEAMUS placed form in chart and put copy in patient's discharge folder. SEAMUS contacted [facility] and faxed referral/orders. Alfie at [facility] advised they can admit patient today. SEAMUS faxed clinical updates, covid results, and discharge orders to Sveta at [facility]. Transport time set for 1400. SEAMUS contacted patient's daughter and left a message with transport time. Sveta notified that [facility] can do admit today. Alfie with [facility] has been in contact with FATOU Schultz at [facility]. Discharge Plan: [facility] with Hospice
--- NOTE | 2022-02-17 13:17 | NUR ---
CALLED REPORT TO [facility]. ALL QUESTIONS ANSWERED.
== END 2022-02-17 15:00 | DRG 177 ==
LOC: COL.ER 17:44 → MEDICAL 19:00
PROVIDERS: Emergency Medicine; Student in an Organized Health Care Education/Training Program; ADMIT Internal Medicine
DX: J69.0 Pneumonitis due to inhalation of food and vomit (principal); J96.01 Acute respiratory failure with hypoxia; G93.41 Metabolic encephalopathy; R47.01 Aphasia; M48.56XA Collapsed vertebra, not elsewhere classified, lumbar region, initial encounter for fracture; G20 Parkinson's disease; Z66 Do not resuscitate; I10 Essential (primary) hypertension; I25.10 Atherosclerotic heart disease of native coronary artery without angina pectoris; F02.80 Dementia in other diseases classified elsewhere, unspecified severity, without behavioral disturbance, psychotic disturbance, mood disturbance, and anxiety; D64.9 Anemia, unspecified; K21.9 Gastro-esophageal reflux disease without esophagitis; I65.23 Occlusion and stenosis of bilateral carotid arteries; E53.8 Deficiency of other specified B group vitamins; E55.9 Vitamin D deficiency, unspecified; R13.10 Dysphagia, unspecified; Z20.822 Contact with and (suspected) exposure to COVID-19; Z79.82 Long term (current) use of aspirin; Z87.891 Personal history of nicotine dependence; Z95.5 Presence of coronary angioplasty implant and graft
CPT/HCPCS: J1650; J2543; J7030; Q9967

== ENCOUNTER → 2022-11-19 | Outpatient (REF) | payer MEDICARE, MEDICAID ==
[~2022-11-19] MED LIST changes: +PLAVIX 75MG TAB75 MG PO
[2022-11-19 14:18] LABS: ALANINE AMINOTRANSFERASE < 6 U/L (0-55); ALBUMIN 4.3 gm/dL (3.4-4.8); ALKALINE PHOSPHATASE 76 U/L (40-150); ANION GAP 12 mmol/L (7-16); AST,SGOT 9 U/L (5-34); BILIRUBIN,TOTAL 0.4 mg/dL (0.2-1.2); BLOOD UREA NITROGEN 16 mg/dL (8-26); CALCIUM 9.4 mg/dL (8.4-10.2); CARBON DIOXIDE 23 mmol/L (23-31); CHLORIDE 106 mmol/L (98-107); CREATININE, serum 0.85 mg/dL (0.72-1.25); GLUCOSE 90 mg/dL (70-99); POTASSIUM 4.2 mmol/L (3.5-4.5); SODIUM 141 mmol/L (136-145); THYROID STIMULATING HORMONE 1.855 uIU/mL (0.350-4.940)
[2022-11-19 14:21] LABS: BASO % 0.7 % (0.0-2.0); EOS # 0.1 K/mm3 (0.0-0.7); EOS % 1.3 % (0.0-4.0); GRAN # 4.2 K/mm3 (1.4-6.5); HEMATOCRIT 40.1 % (42.0-52.0); HEMOGLOBIN 13.6 g/dl (13.5-18.0); LYMPH # 1.1 K/mm3 (1.2-3.4); LYMPH % 18.7 % (20.0-51.0); MEAN CELL VOLUME 98 fl (80.0-100.0); MEAN CORPUSCULAR HEMOGLOBIN 33 pg (27-31); MEAN CORPUSCULAR HGB CONC 34 g/dl (33.0-37.0); MEAN PLATELET VOLUME 9.4 fl (7.4-10.4); MONO # 0.5 K/mm3 (0.1-0.6); PLATELET COUNT 259 K/mm3 (130-400); RED BLOOD COUNT 4.08 M/mm3 (4.20-5.60)
== END ==
LOC: ZCOL.LAB 12:57
PROVIDERS: Family Medicine
DX: C20 Malignant neoplasm of rectum (principal); I25.10 Atherosclerotic heart disease of native coronary artery without angina pectoris; E07.9 Disorder of thyroid, unspecified

== ENCOUNTER 2022-11-20 12:30 | Emergency (ER) | payer MEDICARE, MEDICAID ==
[~2022-11-20] VITALS: Ht 170.2 cm; Wt 56.8 kg
[2022-11-20 12:33] VITALS: TEMP 97.4
[2022-11-20 13:02] LABS: BASO % 0.6 % (0.0-2.0); EOS # 0.1 K/mm3 (0.0-0.7); EOS % 1.3 % (0.0-4.0); GRAN # 5.6 K/mm3 (1.4-6.5); GRAN % 77.6 % (42.2-75.2); HEMATOCRIT 39.1 % (42.0-52.0); HEMOGLOBIN 13.7 g/dl (13.5-18.0); LYMPH # 0.9 K/mm3 (1.2-3.4); MEAN CELL VOLUME 96 fl (80.0-100.0); MEAN CORPUSCULAR HEMOGLOBIN 34 pg (27-31); MEAN CORPUSCULAR HGB CONC 35 g/dl (33.0-37.0); MEAN PLATELET VOLUME 9.6 fl (7.4-10.4); MONO # 0.5 K/mm3 (0.1-0.6); MONO % 7.1 % (1.7-9.3); PLATELET COUNT 231 K/mm3 (130-400); RED BLOOD COUNT 4.07 M/mm3 (4.20-5.60)
[2022-11-20 13:22] LABS: ALBUMIN 3.9 gm/dL (3.4-4.8); ALKALINE PHOSPHATASE 69 U/L (40-150); ANION GAP 11 mmol/L (7-16); AST,SGOT 11 U/L (5-34); BILIRUBIN,TOTAL 0.5 mg/dL (0.2-1.2); BLOOD UREA NITROGEN 15 mg/dL (8-26); CALCIUM 9.2 mg/dL (8.4-10.2); CARBON DIOXIDE 21 mmol/L (23-31); CHLORIDE 109 mmol/L (98-107); CREATININE, serum 0.89 mg/dL (0.72-1.25); GLUCOSE 105 mg/dL (70-99); POTASSIUM 4.6 mmol/L (3.5-4.5); SODIUM 141 mmol/L (136-145); TOTAL PROTEIN 6.6 gm/dL (6.2-8.1)
[2022-11-20 13:23] LABS: ALANINE AMINOTRANSFERASE < 6 U/L (0-55)
[2022-11-20 13:53] LABS: COLLECTION METHOD CLEAN CATCH
[2022-11-20 14:12] LABS: MUCOUS Present (NOT PRESENT); SQUAMOUS EPITHELIAL 0-2 /hpf (0-10); URINE BACTERIA Rare /hpf (NONE SEEN); URINE RBC >50 /hpf (0-2)
[2022-11-20 14:13] LABS: PH 5.5 (5.0-8.5); URINE APPEARANCE Clear (CLEAR/HAZY); URINE BLOOD 3+ (NEGATIVE); URINE COLOR Yellow (YELLOW); URINE GLUCOSE Negative (NEGATIVE); URINE KETONE 1+ (NEGATIVE); URINE NITRATE Negative (NEGATIVE); URINE PROTEIN(semi-quant) TRACE (NEGATIVE); URINE UROBILINOGEN 0.2 E.U/dL (0.2-1.0)
[2022-11-20 14:32] VITALS: BP 153/91; PULSE 77
== END 2022-11-20 14:32 | disposition home or self-care (01) ==
LOC: COL.ER 12:30
PROVIDERS: Emergency Medicine
DX: S50.811A Abrasion of right forearm, initial encounter (principal); S50.812A Abrasion of left forearm, initial encounter; R46.89 Other symptoms and signs involving appearance and behavior; Z20.822 Contact with and (suspected) exposure to COVID-19; W19.XXXA Unspecified fall, initial encounter